=== PATIENT | female | born 1980 | race Caucasian/White ===

== ENCOUNTER → 2020-10-10 08:04 | Outpatient (CLI) | payer BC | END | disposition home or self-care (01) | LOC: D.MRI 08:00 | PROVIDERS: ATTEND Orthopaedic Surgery | DX: S83.241A Other tear of medial meniscus, current injury, right knee, initial encounter (principal) ==

== ENCOUNTER → 2020-10-12 13:10 | Outpatient (CLI) | payer BC ==
--- NOTE | 2020-10-12 14:23 | NUR ---
TIMEOUT PERFORMED AT 1415 USING NAME AND . COMPAZINE,TAMIFLU,SERITONIN--ALLERGIES, NO BLOOD THINNERS, 20CC'S ISOVUE 200M INJECTED INTO SHOULDER JOINT FOR ARTHROGRAM
== END | disposition home or self-care (01) ==
LOC: D.RAD 13:10
PROVIDERS: ATTEND Orthopaedic Surgery
DX: M75.51 Bursitis of right shoulder (principal)

== ENCOUNTER → 2020-11-16 07:47 | Outpatient (CLI) | payer BC | END | disposition home or self-care (01) | LOC: D.MRI 07:47 | PROVIDERS: ATTEND Orthopaedic Surgery | DX: M25.551 Pain in right hip (principal) ==

== ENCOUNTER → 2021-01-23 07:16 | Day surgery (SDC) | payer BC ==
--- NOTE | ~2021-01-23 | HEMODYNAMI ---
PATIENT:RAMANDEEP HOWELL MEDICAL RECORD: [id number] : 76 LOCATION:[facility] ADMISSION DATE: 01/23/21 Generatedon:18:22 Patient name: RAMANDEEP HOWELL Patient #: [id number] SSN: : 1980 Date of study: 01/23/2021 Page: Of Hemodynamic Procedure Report Patient Data Patient Demographics Procedure consent was obtained First Name: RAMANDEEP Gender: Female Last Name: DANTE : 1980 Middle Initial: YAHIR Age: 40 year(s) Patient #: [id number] Race: Unknown Additional ID: [id number] Contact details [address]: [address] [place] [address] State: [place] City: [place] Zip code: [address] Past Medical History Allergies Allergen Reaction Date Comments Reported Other allergy 01/23/2021 compazine, tamiflu Admission Admission Data Admission Date: 01/23/2021 Admission Time: 7:16 Procedure Procedure Types Cath Procedure Peripheral Cath Diagnostic Procedure Miscellaneous Aspiration/Injection (Joint) Procedure Description Procedure Date Procedure Date: 01/23/2021 Procedure Start Time: 8:10 Procedure Staff Name Function Gerardo Mccray MD Performing Physician John Salcido RT Monitor Miryam Son RT Monitor Procedure Data Cath Procedure Fluoroscopy Diagnostic fluoroscopy Total fluoroscopy Time: 0.4 time: 0.4 min min Diagnostic fluoroscopy Total fluoroscopy dose: 6 dose: 6 mGy mGy Contrast Material Contrast Material Type Amount (ml) Isovue 200 8 Hemodynamics Rest Pre Cath Intra NCS Post Cath Procedure Log Time Note 8:04:04 Time tracking: Regular hours (M-F 7:00 - 5:00) 8:05:19 Patient received from Other to IR Alert and oriented. Tansferred to table in Supine position. 8:05:23 Signed procedure consent form obtained from patient. 8:05:27 Pre-procedure instructions explained to patient. 8:05:28 Pre-op teaching completed and patient verbalized understanding. 8:05:59 Patient allergic to Other allergycompazine, tamiflu 8:06:07 Is the patient allergic to Iodine/contrast media? No. 8:06:23 Right Hip was prepped with betadine and draped in sterile fashion. 8:06:27 8:06:35 SAFE-T PLUS MYELOGRAM TRAY opened to sterile field. 8:09:53 Physician arrived 8::54 --------ALL STOP TIME OUT------ 8:09:54 Final Timeout: patient, procedure, and site verified with staff and physician. All members of the team are in agreement. 8:10:21 Procedure started. 8:10:21 Full Disclosure recording started 8:10:29 Local anesthetic to Right Hip with Lidocaine 1% by Gerardo Mccray MD.INITIAL ACCESS ONLY 8:21:23 Procedure ended.(Physican Out) 8:21:55 Fluoroscopy time 00.40 minutes. 8:21:58 Flurop Dose total: 6 8:21:58 Fluoroscopy dose: 6 mGy 8:22:04 Contrast amount:Isovue 200 8ml. 8:22:06 Procedure and supply charges have been captured, reviewed, submitted and are correct. 8:22:14 Patient transfered to Other with Ambulatory. Device Usage Item Name Manufacture Quantity Catalog Hospital Part Current Minimal Lot# / Number Charge Number Stock Stock Serial# Code SAFE-T CareFusion 1 [id number] PLUS MYELOGRAM TRAY Signature Audit [place] Stage Time Signature Unsigned Intra-Procedure 01/23/2021 Miryam Son 8:22:31 AM (R) [facility] [address] [place] [address]
== END | disposition home or self-care (01) ==
LOC: D.RAD 07:16
PROVIDERS: ATTEND Orthopaedic Surgery
DX: M16.11 Unilateral primary osteoarthritis, right hip (principal)

== ENCOUNTER 2021-02-01 07:52 | Day surgery (SDC) | payer BC ==
[~2021-02-01] VITALS: Ht 170.2 cm; Wt 90.7 kg
[~2021-02-01 07:52] MED LIST: FEXOFENADINE HC60 MG PO; MULTI-DAY VITAM1 TAB PO
[2021-02-01 10:03] VITALS: BP 116/63; Ht 170.2 cm; Wt 90.7 kg
[2021-02-01 10:24] LABS: HCG URINE NEGATIVE (NEGATIVE)
--- NOTE | 2021-02-01 12:16 | NUR ---
CARE TO MAGDALENA DON RN @2550
--- NOTE | 2021-02-01 13:55 | NUR ---
DISCHARGED VIA W/C, ACCOMPANIED BY SHELBI MEDINA, TO [facility] WITH FATHER DRIVING. ALL BELONGINGS WITH PT/FATHER.
--- NOTE | 2021-02-05 07:12 | OP ---
PATIENT NAME: RAMANDEEP LINCOLN MEDICAL RECORD: [id number] :76 LOCATION:[facility] ADMISSION DATE: SURGEON: DARRIN GUTIERREZ DO DATE OF OPERATION: 02/01/2021 PROCEDURE PERFORMED: Left shoulder arthroscopy with rotator cuff repair, distal clavicle excision, subacromial decompression, biceps tenodesis and attempted a blood draw for PRP. Labral debridement. PREOPERATIVE DIAGNOSES: Left shoulder partial thickness rotator cuff tear, SLAP tear, subacromial impingement, AC joint arthritis. POSTOPERATIVE DIAGNOSIS: Left shoulder partial thickness rotator cuff tear, SLAP tear, subacromial impingement, AC joint arthritis . INDICATIONS: Ms. Lincoln is a 40-year-old female who has had left shoulder pain for quite some time. She had an MRI showing the above findings. She wanted something done surgically. She has osteoarthritis of both knees. She wanted to try PRP shots. I told her that would be nguyễn but we could do it while she was asleep. She is aware of that and aware the risk of the shoulder, rotator cuff repair, infection, bleeding, damage to nerves or vessels, need for further surgery, continued pain, loss of motion of the shoulder and even and she signed the consent. SURGEON: Darrin Gutierrez DO OPERATIVE PROCEDURE: The patient received a block by anesthesia in preoperative area and taken to the operative suite, laid in the right lateral decubitus position with the left shoulder up and sedated and LMA was placed. The left shoulder was then prepped and draped in sterile fashion. A timeout was performed and everyone was in agreement with correct side, site, patient and procedure. I then began by inflating the shoulder joint through a posterior portal 18-gauge spinal needle with 60 mL normal saline and then removed the needle and established a posterior portal with a 11-blade scalpel. The trocar was then brought in the joint and then established an anterior portal using 18-gauge spinal needle and 11-blade scalpel and the trocar was then brought in. I then saw the SLAP tear and she had basically 80-90% thickness tear in her supraspinatus articular side. We then brought in the burner, did a biceps tenotomy and labral debridement. The subscapularis was in good repair. There was nothing in the inferior gutter and the joint looked good and there were no cartilage damage. I then went to the subacromial space, established a lateral portal using 18-gauge spinal needle and 11-blade scalpel. The trocar was then brought in. I then did a subacromial decompression with acromioplasty and through the anterior portal, a distal clavicle excision, open up the AC joint to approximately 7 mm. We then also did a bursectomy. I then marked the rotator cuff tear on the articular side. When I went back into the joint with the scope with an 18-gauge spinal needle, I then extended the incision of the lateral portal with 15-blade scalpel, I then carefully dissected down to the rotator cuff, the marked part and then completed the tear, just a few fibers on the bursal side, they were left. I then put a medial row anchor in and through the rotator cuff tendon with 4 suture tapes that were attached to the anchor and then brought into a lateral row pulling the tear over nicely repairing it and good compression on it. I then put on a large Regeneten implant and stapled into place and then went to the anterior humerus and made an incision. Made careful dissection down to the long head of the biceps tendon and retrieved it, OPERATIVE REPORT [id number] RAMANDEEP LINCOLN put a unicortical hole in the humerus, put 2.9 JuggerLoc anchor in with a loop and looped the tendon through the loop and cinched it down to the humerus and then cut the excess suture with a free needle and went back to the tendon twice and tied it down, cut the excess tendon and suture. While doing that they were attempting to draw the blood for the PRP and were unsuccessful and we then aborted that effort. She was then closed by Ben Hartmann, certified surgical urgent care physician assistant with 2-0 Vicryl in inverted fashion, 4-0 Monocryl ran on the skin on the open sites and the portal sites with 4-0 Monocryl inverted fashion, dressed with Dermabond, Telfa, and Tegaderm. Awaken, put a sling, taken to recovery in stable condition. ESTIMATED BLOOD LOSS: Minimal. COMPLICATION: None. 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
== END 2021-02-01 13:55 | disposition home or self-care (01) ==
LOC: D.OPS 07:52
PROVIDERS: ATTEND Orthopaedic Surgery
DX: M75.102 Unspecified rotator cuff tear or rupture of left shoulder, not specified as traumatic (principal); S43.432A Superior glenoid labrum lesion of left shoulder, initial encounter; X58.XXXA Exposure to other specified factors, initial encounter; M75.42 Impingement syndrome of left shoulder; M13.812 Other specified arthritis, left shoulder; M25.512 Pain in left shoulder; M16.11 Unilateral primary osteoarthritis, right hip